=== PATIENT | male | born 1950 | race Caucasian/White ===

== ENCOUNTER → 2016-06-21 | Outpatient (CLI) | payer OTHER, BC ==
[~2016-06-21] MED LIST: ALEVE220 MG PO; ASPIRIN81 M1 PO; CATALYN PO; CIPROFLOXACIN500 MG PO; COQ 10 PO; CORDARONE200 MG PO; DIFLUCAN150 MG PO; DITROPAN XL5 MG PO; DULCOLAX STOOL100 MG PO; FLOMAX0.4 MG PO; GLUCOPHAGE500 M1 PO; HYPOTHALMEX PO; ICAPS TABLET1 EACH PO; IMDUR SA30 MG PO; IRON325 M2 PO; LIPITOR80 MG PO; LOPRESSOR25 MG PO; LOPRESSOR50 M1 PO; MAGNESIUM400 MG PO; MOTRIN800 MG PO; NAPROSYN500 MG PO; NATURE'S BLEND F1 MG PO; NORCO 5-325 TA1 EACH PO; OCUVITE1 TA1 PO; PERCOCET 325 MG1 TA2 PO; PERCOCET 325 MG1 TA6 PO; PLAVIX75 M1 PO; PROTONIX40 MG PO; TRACE MINERALS PO; TYLENOL PM 5001 CAP PO; URIBEL PO; VICODIN 500 MG-1 TAB PO; VITAMIN C500 M1 PO; ZOFRAN ODT4 MG SL; ZYPAN PO; [UNRECOGNIZED DRUG - OTHER] PO
== END | disposition home or self-care (01) ==
LOC: RAD 07:15
DX: M47.897 Other spondylosis, lumbosacral region (principal); M54.5 Low back pain

== ENCOUNTER → 2016-09-26 | Outpatient (CLI) | payer BC, MEDICARE ==
[2016-09-26 08:29] LABS: HEMATOCRIT 42.9 % (42.0-52.0); HEMOGLOBIN 14.5 g/dl (14.0-18.0); MEAN CELL VOLUME 88.6 fl (80.0-94.0); MEAN CORPUSCULAR HGB CONC 33.8 g/dl (33.0-37.0); RED BLOOD COUNT 4.84 10*6/uL (4.50-5.90); RED CELL DISTRI WIDTH 13.1 % (0-14.5); WHITE BLOOD COUNT 5.7 10*3/uL (4.8-10.8)
[2016-09-26 08:54] LABS: ALBUMIN 3.6 gm/dl (3.1-4.5); ALKALINE PHOSPHATASE 237 U/L (45-117); BILIRUBIN, TOTAL 0.5 mg/dl (0.2-1.0); BUN 18 mg/dl (7-24); CARBON DIOXIDE 30 mmol/L (21-32); CHLORIDE 106 mmol/L (98-107); CHOLESTEROL 92 mg/dL (<200); EST GLOM FILT AFRICAN AMERICAN > 60 ml/min; GLUCOSE 140 mg/dL (65-99); HDL CHOLESTEROL 57 mg/dl (40-60); LDL CHOLESTEROL 27 mg/dL (9-159); POTASSIUM 4.2 mmol/L (3.5-5.1); SGOT/AST 19 IU/L (3-35); SGPT/ALT 30 U/L (12-78); SODIUM 144 mmol/L (136-145); TRIGLYCERIDES 41 mg/dl (<150); VLDL CHOLESTEROL 8 mg/dL (6-40)
[2016-09-26 09:35] LABS: VITAMIN D, 25-HYDROXY 35.7 ng/mL (30-100)
== END | disposition home or self-care (01) ==
LOC: LAB 08:00
PROVIDERS: Family Medicine
DX: Z12.5 Encounter for screening for malignant neoplasm of prostate (principal); E55.9 Vitamin D deficiency, unspecified; E78.00 Pure hypercholesterolemia, unspecified; E74.00 Glycogen storage disease, unspecified; M19.90 Unspecified osteoarthritis, unspecified site; R53.83 Other fatigue

== ENCOUNTER → 2016-10-02 | Outpatient (CLI) | payer BC, MEDICARE | END | disposition home or self-care (01) | LOC: US 00:49 | DX: N20.0 Calculus of kidney (principal) ==

== ENCOUNTER → 2016-10-07 | Outpatient (CLI) | payer BC, MEDICARE | END | disposition home or self-care (01) | LOC: CT 09-29 14:00 | DX: N20.0 Calculus of kidney (principal); R31.9 Hematuria, unspecified; N23 Unspecified renal colic; R10.9 Unspecified abdominal pain; M12.88 Other specific arthropathies, not elsewhere classified, other specified site; K57.30 Diverticulosis of large intestine without perforation or abscess without bleeding ==

== ENCOUNTER → 2017-03-05 | Outpatient (CLI) | payer BC, MEDICARE ==
[2017-03-05 11:19] LABS: HEMATOCRIT 40.6 % (42.0-52.0); HEMOGLOBIN 13.8 g/dl (14.0-18.0); MEAN CELL VOLUME 89.8 fl (80.0-94.0); MEAN CORPUSCULAR HGB 30.5 pg (27.0-31.0); MEAN PLATELET VOLUME 9.8 fl (9.6-12.3); RED BLOOD COUNT 4.52 10*6/uL (4.50-5.90); RED CELL DISTRI WIDTH 12.8 % (0-14.5); WHITE BLOOD COUNT 4.7 10*3/uL (4.8-10.8)
[2017-03-05 11:45] LABS: ALBUMIN 3.7 gm/dl (3.1-4.5); ALKALINE PHOSPHATASE 169 U/L (45-117); BUN 23 mg/dl (7-24); CHLORIDE 106 mmol/L (98-107); CHOLESTEROL 99 mg/dL (<200); CPK 166 U/L (39-308); CREATININE 0.88 mg/dL (0.70-1.30); HDL CHOLESTEROL 65 mg/dl (40-60); LDL CHOLESTEROL 27 mg/dL (9-159); SGOT/AST 24 IU/L (3-35); SGPT/ALT 30 U/L (12-78); SODIUM 141 mmol/L (136-145); TOTAL PROTEIN 6.9 gm/dL (6.4-8.2); TRIGLYCERIDES 33 mg/dl (<150); VLDL CHOLESTEROL 7 mg/dL (6-40)
== END | disposition home or self-care (01) ==
LOC: LAB 10:57
PROVIDERS: Family Medicine
DX: E11.9 Type 2 diabetes mellitus without complications (principal); E55.9 Vitamin D deficiency, unspecified; E78.00 Pure hypercholesterolemia, unspecified

== ENCOUNTER → 2017-05-08 | Outpatient (CLI) | payer BC, MEDICARE ==
[2017-05-08 16:56] LABS: FREE T4 0.82 ng/dl (0.76-1.46)
[2017-05-08 17:02] LABS: THYROID STIM HORMONE (HS) 1.03 uIU/ml (0.358-4.75)
== END | disposition home or self-care (01) ==
LOC: LAB 16:11
PROVIDERS: Family Medicine
DX: R94.6 Abnormal results of thyroid function studies (principal)

== ENCOUNTER → 2017-05-11 | Outpatient (CLI) | payer BC, MEDICARE | END | disposition home or self-care (01) | LOC: CT 01:06 | DX: K57.30 Diverticulosis of large intestine without perforation or abscess without bleeding (principal); K76.0 Fatty (change of) liver, not elsewhere classified; K40.90 Unilateral inguinal hernia, without obstruction or gangrene, not specified as recurrent; K86.1 Other chronic pancreatitis; M51.36 Other intervertebral disc degeneration, lumbar region; M43.17 Spondylolisthesis, lumbosacral region; I70.0 Atherosclerosis of aorta; K51.80 Other ulcerative colitis without complications ==

== ENCOUNTER → 2017-05-23 | Outpatient (CLI) | payer BC, MEDICARE ==
[2017-05-23 10:23] LABS: LIPASE 171 U/L (73-393)
== END | disposition home or self-care (01) ==
LOC: LAB 09:30
PROVIDERS: Family Medicine
DX: K86.1 Other chronic pancreatitis (principal); K86.81 Exocrine pancreatic insufficiency

== ENCOUNTER → 2017-05-30 | Outpatient (CLI) | payer BC, MEDICARE | END | disposition home or self-care (01) | LOC: US 05-29 11:00 | DX: K76.0 Fatty (change of) liver, not elsewhere classified (principal) ==

== ENCOUNTER → 2017-09-05 | Day surgery (SDC) | payer BC, MEDICARE ==
[~2017-09-05] VITALS: Ht 175.2 cm; Wt 78.9 kg
--- NOTE | ~2017-09-05 | O ---
[place], [place] OPERATIVE NOTE NAME: RIAN LEWIS UNIT #: [id number] ROOM: DOCTOR: RODGER BATRES MD BIRTHDATE: [birth year] DOS: 09/05/2017 GASTROENDOSCOPIC REPORT HISTORY OF PRESENT ILLNESS: A 67-year-old, who has presented for colonoscopy and colonic screening. ALLERGIES: To no known medication. FAMILY HISTORY: Noncontributory. PAST SURGICAL HISTORY: Coronary artery disease, status post CABG x 3 vessels in 2016; left inguinal hernia repair, tonsillectomy, and lithotripsy. PAST MEDICAL HISTORY: Hyperlipidemia, diabetes mellitus, and hypertension. SOCIAL HISTORY: Nonsmoker and social alcohol consumer. PROCEDURE: Today's procedure part of investigation is colonoscopy plus piecemeal polypectomy, polyp in rectal pouch. PREMEDICATION: Versed and propofol. SCOPE: Olympus Spotster colonoscope 10L video. REPORT: After putting the patient in left lateral position and application of lubricant to the scope, the scope was introduced. Thereafter, under direct visualization, advanced through the length of colon without difficulty. Base of the cecum explored, appendiceal orifice identified, and ileocecal valve, photographed. There is retained stool and semi-liquid form throughout the length of the colon. Detailed visualization compromised. However, diverticulosis was identified in a scattered form and sessile polypoid lesion in rectal pouch with piecemeal polypectomy was removed. The patient extubated and tolerated the procedure well. IMPRESSION: Compromised visualization with presence of stool throughout the colon; however, diverticulosis and sessile polypoid lesion in rectal pouch, status post piecemeal polypectomy. PLAN: High fiber diet. ACTIVITY: Ad alen. FOLLOWUP: Routinely with you in office, p.r.n. visit with us in [facility]. I thank you very much indeed. [place], [place] OPERATIVE NOTE NAME: LEWISRIAN Emerald UNIT #: [id number] ROOM: DOCTOR: RODGER BATRES MD BIRTHDATE: [birth year] RODGER BATRES MD CM:OPRECORD:OPERATIVE NOTE [id number] IRINA BATRES MD 09/05/17 0826 interface
[2017-09-05 07:26] VITALS: BP 140/85
[2017-09-05 08:01] VITALS: BP 98/54
[2017-09-05 08:16] VITALS: BP 117/73
[2017-09-05 08:31] VITALS: BP 116/67
== END | disposition home or self-care (01) ==
LOC: SDC 07-20 11:00
DX: K57.30 Diverticulosis of large intestine without perforation or abscess without bleeding (principal); K62.1 Rectal polyp; I25.10 Atherosclerotic heart disease of native coronary artery without angina pectoris; Z95.1 Presence of aortocoronary bypass graft; Z98.890 Other specified postprocedural states; E78.5 Hyperlipidemia, unspecified; E11.9 Type 2 diabetes mellitus without complications; I10 Essential (primary) hypertension; K21.9 Gastro-esophageal reflux disease without esophagitis; Z87.442 Personal history of urinary calculi; E78.00 Pure hypercholesterolemia, unspecified; Z82.49 Family history of ischemic heart disease and other diseases of the circulatory system; Z83.3 Family history of diabetes mellitus

== ENCOUNTER → 2017-10-02 | Outpatient (CLI) | payer BC, MEDICARE ==
[2017-10-02 10:17] LABS: ALBUMIN 3.8 gm/dl (3.1-4.5); ALKALINE PHOSPHATASE 188 U/L (45-117); BUN 19 mg/dl (7-24); CHLORIDE 104 mmol/L (98-107); CHOLESTEROL 122 mg/dL (<200); CPK 146 U/L (39-308); CREATININE 0.82 mg/dL (0.70-1.30); HDL CHOLESTEROL 67 mg/dl (40-60); LDL CHOLESTEROL 46 mg/dL (9-159); POTASSIUM 3.8 mmol/L (3.5-5.1); SGOT/AST 18 IU/L (3-35); SGPT/ALT 30 U/L (12-78); SODIUM 139 mmol/L (136-145); TOTAL PROTEIN 7.2 gm/dL (6.4-8.2); TRIGLYCERIDES 43 mg/dl (<150); VLDL CHOLESTEROL 9 mg/dL (6-40)
== END | disposition home or self-care (01) ==
LOC: LAB 09:05
PROVIDERS: Family Medicine
DX: E78.00 Pure hypercholesterolemia, unspecified (principal); I10 Essential (primary) hypertension; E74.9 Disorder of carbohydrate metabolism, unspecified

== ENCOUNTER → 2018-01-03 | Outpatient (CLI) | payer BC, MEDICARE ==
[2018-01-03 08:05] LABS: ALBUMIN 3.9 gm/dl (3.1-4.5); ALKALINE PHOSPHATASE 214 U/L (45-117); BUN 18 mg/dl (7-24); CHLORIDE 106 mmol/L (98-107); CHOLESTEROL 112 mg/dL (<200); CREATININE 0.87 mg/dL (0.70-1.30); HDL CHOLESTEROL 60 mg/dl (40-60); LDL CHOLESTEROL 41 mg/dL (9-159); POTASSIUM 3.8 mmol/L (3.5-5.1); SGOT/AST 19 IU/L (3-35); SGPT/ALT 35 U/L (12-78); SODIUM 140 mmol/L (136-145); TRIGLYCERIDES 55 mg/dl (<150); VLDL CHOLESTEROL 11 mg/dL (6-40)
[2018-01-03 08:06] LABS: CPK 104 U/L (39-308)
== END | disposition home or self-care (01) ==
LOC: LAB 07:12
PROVIDERS: Family Medicine
DX: I10 Essential (primary) hypertension (principal); E11.9 Type 2 diabetes mellitus without complications; E78.00 Pure hypercholesterolemia, unspecified

== ENCOUNTER → 2018-04-26 | Outpatient (CLI) | payer BC, MEDICARE ==
[2018-04-26 08:56] LABS: HEMATOCRIT 40.6 % (42.0-52.0); HEMOGLOBIN 13.1 g/dl (14.0-18.0); MEAN CELL VOLUME 88.6 fl (80.0-94.0); MEAN CORPUSCULAR HGB 28.6 pg (27.0-31.0); MEAN CORPUSCULAR HGB CONC 32.3 g/dl (33.0-37.0); RED BLOOD COUNT 4.58 10*6/uL (4.50-5.90); RED CELL DISTRI WIDTH 13.1 % (0-14.5); WHITE BLOOD COUNT 6.3 10*3/uL (4.8-10.8)
[2018-04-26 09:11] LABS: ALBUMIN 3.7 gm/dl (3.1-4.5); ALKALINE PHOSPHATASE 149 U/L (45-117); BUN 19 mg/dl (7-24); CHLORIDE 106 mmol/L (98-107); CHOLESTEROL 125 mg/dL (<200); CPK 46 U/L (39-308); CREATININE 0.87 mg/dL (0.70-1.30); HDL CHOLESTEROL 55 mg/dl (40-60); LDL CHOLESTEROL 54 mg/dL (9-159); POTASSIUM 3.8 mmol/L (3.5-5.1); SGOT/AST 11 IU/L (3-35); SGPT/ALT 29 U/L (12-78); SODIUM 139 mmol/L (136-145); TOTAL PROTEIN 7.2 gm/dL (6.4-8.2); TRIGLYCERIDES 80 mg/dl (<150); VLDL CHOLESTEROL 16 mg/dL (6-40)
== END | disposition home or self-care (01) ==
LOC: LAB 08:05
PROVIDERS: Family Medicine
DX: E11.9 Type 2 diabetes mellitus without complications (principal); I10 Essential (primary) hypertension; E78.00 Pure hypercholesterolemia, unspecified; M19.90 Unspecified osteoarthritis, unspecified site

== ENCOUNTER → 2018-11-30 | Outpatient (CLI) | payer BC, MEDICARE ==
[2018-11-30 09:46] LABS: HEMOGLOBIN 14.2 g/dl (14.0-18.0); MEAN CELL VOLUME 91.3 fl (80.0-94.0); MEAN CORPUSCULAR HGB 30.1 pg (27.0-31.0); MEAN PLATELET VOLUME 10.4 fl (9.6-12.3); RED BLOOD COUNT 4.71 10*6/uL (4.50-5.90); RED CELL DISTRI WIDTH 12.4 % (0-14.5); WHITE BLOOD COUNT 5.4 10*3/uL (4.8-10.8)
[2018-11-30 10:06] LABS: ALBUMIN 3.9 gm/dl (3.1-4.5); ALKALINE PHOSPHATASE 138 U/L (45-117); BUN 22 mg/dl (7-24); CHLORIDE 108 mmol/L (98-107); CHOLESTEROL 138 mg/dL (<200); CPK 86 U/L (39-308); CREATININE 1.08 mg/dL (0.70-1.30); HDL CHOLESTEROL 60 mg/dl (40-60); LDL CHOLESTEROL 55 mg/dL (9-159); POTASSIUM 4.2 mmol/L (3.5-5.1); SGOT/AST 17 IU/L (3-35); SGPT/ALT 34 U/L (12-78); SODIUM 142 mmol/L (136-145); TRIGLYCERIDES 114 mg/dl (<150); VLDL CHOLESTEROL 23 mg/dL (6-40)
== END | disposition home or self-care (01) ==
LOC: LAB 08:59
PROVIDERS: Family Medicine
DX: E11.9 Type 2 diabetes mellitus without complications (principal); E55.9 Vitamin D deficiency, unspecified; E78.00 Pure hypercholesterolemia, unspecified

== ENCOUNTER → 2019-03-12 | Outpatient (CLI) | payer BC, MEDICARE ==
[2019-03-12 08:08] LABS: ALBUMIN 3.9 gm/dl (3.1-4.5); ALKALINE PHOSPHATASE 139 U/L (45-117); BUN 22 mg/dl (7-24); CHLORIDE 107 mmol/L (98-107); CHOLESTEROL 133 mg/dL (<200); CPK 132 U/L (39-308); CREATININE 0.91 mg/dL (0.70-1.30); HDL CHOLESTEROL 58 mg/dl (40-60); LDL CHOLESTEROL 59 mg/dL (9-159); POTASSIUM 3.7 mmol/L (3.5-5.1); SGOT/AST 15 IU/L (3-35); SGPT/ALT 34 U/L (12-78); SODIUM 139 mmol/L (136-145); TOTAL PROTEIN 7.1 gm/dL (6.4-8.2); TRIGLYCERIDES 78 mg/dl (<150); VLDL CHOLESTEROL 16 mg/dL (6-40)
== END | disposition home or self-care (01) ==
LOC: LAB 07:08
PROVIDERS: Family Medicine
DX: E11.9 Type 2 diabetes mellitus without complications (principal); E78.00 Pure hypercholesterolemia, unspecified; I10 Essential (primary) hypertension

== ENCOUNTER → 2019-04-16 | Outpatient (CLI) | payer BC, MEDICARE ==
[2019-04-16 07:55] LABS: ALBUMIN 3.7 gm/dl (3.1-4.5); ALKALINE PHOSPHATASE 158 U/L (45-117); BUN 17 mg/dl (7-24); CHLORIDE 107 mmol/L (98-107); CHOLESTEROL 184 mg/dL (<200); CPK 102 U/L (39-308); CREATININE 0.95 mg/dL (0.70-1.30); HDL CHOLESTEROL 51 mg/dl (40-60); LDL CHOLESTEROL 108 mg/dL (9-159); POTASSIUM 3.8 mmol/L (3.5-5.1); SGOT/AST 17 IU/L (3-35); SGPT/ALT 43 U/L (12-78); SODIUM 140 mmol/L (136-145); TOTAL PROTEIN 6.9 gm/dL (6.4-8.2); TRIGLYCERIDES 126 mg/dl (<150); VLDL CHOLESTEROL 25 mg/dL (6-40)
== END | disposition home or self-care (01) ==
LOC: LAB 06:45
PROVIDERS: Family Medicine
DX: E78.00 Pure hypercholesterolemia, unspecified (principal)

== ENCOUNTER → 2019-04-24 | Outpatient (CLI) | payer BC, MEDICARE ==
[2019-04-26 18:11] LABS: TESTOSTERONE FREE, (DIRECT) 4.9 pg/mL (6.6-18.1)
== END | disposition home or self-care (01) ==
LOC: LAB 08:42
PROVIDERS: Family Medicine
DX: I10 Essential (primary) hypertension (principal); R53.83 Other fatigue

== ENCOUNTER → 2019-07-17 | Outpatient (CLI) | payer BC, MEDICARE ==
[2019-07-17 08:19] LABS: HEMATOCRIT 45.7 % (42.0-52.0); HEMOGLOBIN 15.2 g/dl (14.0-18.0); MEAN CELL VOLUME 90.1 fl (80.0-94.0); MEAN CORPUSCULAR HGB CONC 33.3 g/dl (33.0-37.0); MEAN PLATELET VOLUME 10.6 fl (9.6-12.3); RED BLOOD COUNT 5.07 10*6/uL (4.50-5.90); RED CELL DISTRI WIDTH 12.3 % (0-14.5); WHITE BLOOD COUNT 5.2 10*3/uL (4.8-10.8)
[2019-07-17 08:49] LABS: ALBUMIN 4.2 gm/dl (3.1-4.5); ALKALINE PHOSPHATASE 149 U/L (45-117); BUN 22 mg/dl (7-24); CHLORIDE 106 mmol/L (98-107); CHOLESTEROL 198 mg/dL (<200); CREATININE 1.13 mg/dL (0.70-1.30); HDL CHOLESTEROL 56 mg/dl (40-60); LDL CHOLESTEROL 114 mg/dL (9-159); POTASSIUM 3.8 mmol/L (3.5-5.1); SGOT/AST 20 IU/L (3-35); SGPT/ALT 42 U/L (12-78); SODIUM 140 mmol/L (136-145); TOTAL PROTEIN 7.3 gm/dL (6.4-8.2); TRIGLYCERIDES 139 mg/dl (<150); VLDL CHOLESTEROL 28 mg/dL (6-40)
== END | disposition home or self-care (01) ==
LOC: LAB 07:19
PROVIDERS: Nurse Practitioner Family
DX: E78.00 Pure hypercholesterolemia, unspecified (principal); E11.9 Type 2 diabetes mellitus without complications; I10 Essential (primary) hypertension; E55.9 Vitamin D deficiency, unspecified

== ENCOUNTER → 2019-07-30 | Outpatient (CLI) | payer BC, MEDICARE | END | disposition home or self-care (01) | LOC: RAD 09:52 | DX: M16.0 Bilateral primary osteoarthritis of hip (principal) ==

== ENCOUNTER → 2019-10-15 | Outpatient (CLI) | payer BC, MEDICARE ==
[2019-10-15 08:54] LABS: HEMATOCRIT 44.7 % (42.0-52.0); MEAN CELL VOLUME 89.8 fl (80.0-94.0); MEAN CORPUSCULAR HGB 30.3 pg (27.0-31.0); MEAN CORPUSCULAR HGB CONC 33.8 g/dl (33.0-37.0); MEAN PLATELET VOLUME 10.5 fl (9.6-12.3); RED BLOOD COUNT 4.98 10*6/uL (4.50-5.90); RED CELL DISTRI WIDTH 12.2 % (0-14.5); WHITE BLOOD COUNT 5.4 10*3/uL (4.8-10.8)
[2019-10-15 09:14] LABS: ALBUMIN 3.9 gm/dl (3.1-4.5); BUN 22 mg/dl (7-24); CHLORIDE 107 mmol/L (98-107); CHOLESTEROL 192 mg/dL (<200); POTASSIUM 4.3 mmol/L (3.5-5.1); SGOT/AST 31 IU/L (3-35); SGPT/ALT 39 U/L (12-78); SODIUM 141 mmol/L (136-145); TOTAL PROTEIN 7.4 gm/dL (6.4-8.2); TRIGLYCERIDES 173 mg/dl (<150); VLDL CHOLESTEROL 35 mg/dL (6-40)
[2019-10-15 09:15] LABS: ALKALINE PHOSPHATASE 152 U/L (45-117); HDL CHOLESTEROL 51 mg/dl (40-60); LDL CHOLESTEROL 106 mg/dL (9-159)
== END | disposition home or self-care (01) ==
LOC: LAB 07:22
PROVIDERS: Nurse Practitioner Family
DX: E11.9 Type 2 diabetes mellitus without complications (principal); I10 Essential (primary) hypertension; E78.00 Pure hypercholesterolemia, unspecified

== ENCOUNTER → 2020-01-16 | Outpatient (CLI) | payer BC, MEDICARE ==
[2020-01-16 09:31] LABS: ALBUMIN 3.6 gm/dl (3.1-4.5); BUN 22 mg/dl (7-24); CHLORIDE 107 mmol/L (98-107); CHOLESTEROL 198 mg/dL (<200); CPK 70 U/L (39-308); CREATININE 0.98 mg/dL (0.70-1.30); HDL CHOLESTEROL 46 mg/dl (40-60); LDL CHOLESTEROL 118 mg/dL (9-159); POTASSIUM 4.1 mmol/L (3.5-5.1); SGOT/AST 18 IU/L (3-35); SGPT/ALT 50 U/L (12-78); SODIUM 138 mmol/L (136-145); TRIGLYCERIDES 168 mg/dl (<150); VLDL CHOLESTEROL 34 mg/dL (6-40)
[2020-01-16 09:34] LABS: ALKALINE PHOSPHATASE 144 U/L (45-117); TOTAL PROTEIN 7.2 gm/dL (6.4-8.2)
== END | disposition home or self-care (01) ==
LOC: LAB 08:20
PROVIDERS: Family Medicine
DX: E11.9 Type 2 diabetes mellitus without complications (principal); E55.9 Vitamin D deficiency, unspecified; I10 Essential (primary) hypertension

== ENCOUNTER → 2020-09-17 | Outpatient (CLI) | payer BC, MEDICARE ==
[~2020-09-17] MED LIST changes: +PERCOCET 5-3251 EACH PO
== END | disposition home or self-care (01) ==
LOC: CARD 00:01
PROVIDERS: ATTEND Internal Medicine Cardiovascular Disease
DX: Z01.818 Encounter for other preprocedural examination (principal); I25.110 Atherosclerotic heart disease of native coronary artery with unstable angina pectoris; R94.31 Abnormal electrocardiogram [ECG] [EKG]

== ENCOUNTER → 2020-12-21 | Outpatient (CLI) | payer BC, MEDICARE ==
[2020-12-21 11:37] LABS: HEMATOCRIT 41.8 % (42.0-52.0); MEAN CELL VOLUME 87.3 fl (80.0-94.0); MEAN CORPUSCULAR HGB 28.6 pg (27.0-31.0); MEAN CORPUSCULAR HGB CONC 32.8 g/dl (33.0-37.0); MEAN PLATELET VOLUME 10.1 fl (9.6-12.3); RED BLOOD COUNT 4.79 10*6/uL (4.50-5.90); RED CELL DISTRI WIDTH 12.9 % (0-14.5); WHITE BLOOD COUNT 6.3 10*3/uL (4.8-10.8)
[2020-12-21 12:03] LABS: ALBUMIN 3.8 gm/dl (3.1-4.5); ALKALINE PHOSPHATASE 205 U/L (45-117); BUN 18 mg/dl (7-24); CHLORIDE 108 mmol/L (98-107); CREATININE 0.88 mg/dL (0.70-1.30); POTASSIUM 3.8 mmol/L (3.5-5.1); SGOT/AST 15 IU/L (3-35); SGPT/ALT 28 U/L (12-78); SODIUM 139 mmol/L (136-145); TOTAL PROTEIN 7.3 gm/dL (6.4-8.2)
== END | disposition home or self-care (01) ==
LOC: LAB 11:01
PROVIDERS: ATTEND Family Medicine
DX: E55.9 Vitamin D deficiency, unspecified (principal); R53.83 Other fatigue; G47.00 Insomnia, unspecified

== ENCOUNTER → 2021-06-17 | Outpatient (CLI) | payer BC, MEDICARE ==
[2021-06-17 10:28] LABS: HEMATOCRIT 41.7 % (42.0-52.0); MEAN CELL VOLUME 87.8 fl (80.0-94.0); MEAN CORPUSCULAR HGB 28.8 pg (27.0-31.0); MEAN CORPUSCULAR HGB CONC 32.9 g/dl (33.0-37.0); MEAN PLATELET VOLUME 10.1 fl (9.6-12.3); RED BLOOD COUNT 4.75 10*6/uL (4.50-5.90); RED CELL DISTRI WIDTH 12.2 % (0-14.5); WHITE BLOOD COUNT 4.6 10*3/uL (4.8-10.8)
[2021-06-17 10:46] LABS: ALBUMIN 3.5 gm/dl (3.1-4.5); ALKALINE PHOSPHATASE 183 U/L (45-117); BUN 18 mg/dl (7-24); CHLORIDE 106 mmol/L (98-107); CHOLESTEROL 184 mg/dL (<200); CREATININE 0.84 mg/dL (0.70-1.30); LDL CHOLESTEROL 107 mg/dL (9-159); POTASSIUM 3.8 mmol/L (3.5-5.1); SGOT/AST 16 IU/L (3-35); SGPT/ALT 29 U/L (12-78); SODIUM 139 mmol/L (136-145); TOTAL PROTEIN 7.3 gm/dL (6.4-8.2); TRIGLYCERIDES 127 mg/dl (<150)
== END | disposition home or self-care (01) ==
LOC: LAB 10:07
PROVIDERS: ATTEND Family Medicine
DX: E11.9 Type 2 diabetes mellitus without complications (principal); Z12.5 Encounter for screening for malignant neoplasm of prostate; E55.9 Vitamin D deficiency, unspecified

== ENCOUNTER → 2021-09-09 | Outpatient (CLI) | payer BC, MEDICARE ==
[2021-09-09 07:40] LABS: HEMATOCRIT 43.5 % (42.0-52.0); MEAN CELL VOLUME 85.6 fl (80.0-94.0); MEAN CORPUSCULAR HGB 28.3 pg (27.0-31.0); MEAN CORPUSCULAR HGB CONC 33.1 g/dl (33.0-37.0); MEAN PLATELET VOLUME 10.1 fl (9.6-12.3); RED BLOOD COUNT 5.08 10*6/uL (4.50-5.90); WHITE BLOOD COUNT 5.3 10*3/uL (4.8-10.8)
[2021-09-09 07:55] LABS: ALKALINE PHOSPHATASE 191 U/L (45-117); BUN 16 mg/dl (7-24); CHLORIDE 106 mmol/L (98-107); CHOLESTEROL 179 mg/dL (<200); CPK 62 U/L (39-308); CREATININE 0.98 mg/dL (0.70-1.30); LDL CHOLESTEROL 104 mg/dL (9-159); SGOT/AST 11 IU/L (3-35); SGPT/ALT 26 U/L (12-78); SODIUM 139 mmol/L (136-145); TOTAL PROTEIN 7.3 gm/dL (6.4-8.2); TRIGLYCERIDES 120 mg/dl (<150)
[2021-09-09 08:32] LABS: VITAMIN D, 25-HYDROXY 48.2 ng/mL (30-100)
== END | disposition home or self-care (01) ==
LOC: LAB 07:15
PROVIDERS: ATTEND Family Medicine
DX: I10 Essential (primary) hypertension (principal); E55.9 Vitamin D deficiency, unspecified; E11.9 Type 2 diabetes mellitus without complications; R53.83 Other fatigue

== ENCOUNTER → 2021-12-13 | Outpatient (CLI) | payer BC, MEDICARE ==
[2021-12-13 09:43] LABS: MEAN CELL VOLUME 87.8 fl (80.0-94.0); MEAN CORPUSCULAR HGB 29.6 pg (27.0-31.0); MEAN CORPUSCULAR HGB CONC 33.7 g/dl (33.0-37.0); MEAN PLATELET VOLUME 9.8 fl (9.6-12.3); RED BLOOD COUNT 4.9 10*6/uL (4.50-5.90); RED CELL DISTRI WIDTH 12.8 % (0-14.5); WHITE BLOOD COUNT 5.3 10*3/uL (4.8-10.8)
[2021-12-13 10:00] LABS: CHLORIDE 111 mmol/L (98-107); POTASSIUM 4.5 mmol/L (3.5-5.1); SODIUM 140 mmol/L (136-145)
[2021-12-13 10:06] LABS: ALKALINE PHOSPHATASE 150 U/L (45-117); BUN 26 mg/dl (7-24); CHOLESTEROL 136 mg/dL (<200); CREATININE 0.89 mg/dL (0.70-1.30); LDL CHOLESTEROL 69 mg/dL (9-159); SGOT/AST 23 IU/L (3-35); SGPT/ALT 28 U/L (12-78); TRIGLYCERIDES 71 mg/dl (<150)
== END ==
LOC: LAB 09:25
PROVIDERS: ATTEND Family Medicine
DX: E11.9 Type 2 diabetes mellitus without complications (principal); E78.00 Pure hypercholesterolemia, unspecified; I10 Essential (primary) hypertension

== ENCOUNTER → 2022-03-29 | Outpatient (CLI) | payer BC, MEDICARE ==
[2022-03-29 07:20] LABS: HEMATOCRIT 44.6 % (42.0-52.0); MEAN CELL VOLUME 87.6 fl (80.0-94.0); MEAN CORPUSCULAR HGB 30.1 pg (27.0-31.0); MEAN CORPUSCULAR HGB CONC 34.3 g/dl (33.0-37.0); MEAN PLATELET VOLUME 9.8 fl (9.6-12.3); RED BLOOD COUNT 5.09 10*6/uL (4.50-5.90); RED CELL DISTRI WIDTH 12.5 % (0-14.5); WHITE BLOOD COUNT 5.3 10*3/uL (4.8-10.8)
[2022-03-29 07:38] LABS: ALKALINE PHOSPHATASE 154 U/L (45-117); BUN 24 mg/dl (7-24); CHLORIDE 108 mmol/L (98-107); CHOLESTEROL 146 mg/dL (<200); CPK 105 U/L (39-308); CREATININE 1.05 mg/dL (0.70-1.30); LDL CHOLESTEROL 78 mg/dL (9-159); POTASSIUM 4.1 mmol/L (3.5-5.1); SGOT/AST 15 IU/L (3-35); SGPT/ALT 31 U/L (12-78); SODIUM 140 mmol/L (136-145); TOTAL PROTEIN 7.3 gm/dL (6.4-8.2); TRIGLYCERIDES 92 mg/dl (<150)
== END | disposition home or self-care (01) ==
LOC: LAB 07:03
PROVIDERS: ATTEND Family Medicine
DX: E11.9 Type 2 diabetes mellitus without complications (principal); E78.00 Pure hypercholesterolemia, unspecified; I10 Essential (primary) hypertension

== ENCOUNTER → 2022-09-30 | Outpatient (CLI) | payer BC, MEDICARE ==
[2022-09-30 09:58] LABS: HEMATOCRIT 45.1 % (42.0-52.0); MEAN CELL VOLUME 86.7 fl (80.0-94.0); MEAN CORPUSCULAR HGB 28.8 pg (27.0-31.0); MEAN CORPUSCULAR HGB CONC 33.3 g/dl (33.0-37.0); MEAN PLATELET VOLUME 10.3 fl (9.6-12.3); RED BLOOD COUNT 5.2 10*6/uL (4.50-5.90); RED CELL DISTRI WIDTH 13.1 % (0-14.5); WHITE BLOOD COUNT 4.7 10*3/uL (4.8-10.8)
[2022-09-30 10:34] LABS: ALKALINE PHOSPHATASE 154 U/L (46-116); BUN 18 mg/dl (9-23); CHLORIDE 106 mmol/L (98-107); CHOLESTEROL 169 mg/dL (<200); LDL CHOLESTEROL 102 mg/dL (9-159); POTASSIUM 3.6 mmol/L (3.4-5.1); SGPT/ALT 25 U/L (10-49); TOTAL PROTEIN 7.1 gm/dL (6.0-8.0); TRIGLYCERIDES 108 mg/dl (<150)
[2022-09-30 11:09] LABS: VITAMIN D, 25-HYDROXY 76.3 ng/mL (30-100)
== END | disposition home or self-care (01) ==
LOC: LAB 01:42
PROVIDERS: ATTEND Family Medicine
DX: Z00.00 Encounter for general adult medical examination without abnormal findings (principal); E11.9 Type 2 diabetes mellitus without complications; E55.9 Vitamin D deficiency, unspecified; E78.00 Pure hypercholesterolemia, unspecified; Z79.899 Other long term (current) drug therapy

== ENCOUNTER → 2023-02-14 | Outpatient (CLI) | payer OTHER, MEDICARE | END | disposition home or self-care (01) | LOC: MRI 00:41 | PROVIDERS: ATTEND Podiatrist | DX: S93.401A Sprain of unspecified ligament of right ankle, initial encounter (principal); M25.471 Effusion, right ankle; M19.071 Primary osteoarthritis, right ankle and foot; R60.0 Localized edema; M72.2 Plantar fascial fibromatosis; X58.XXXA Exposure to other specified factors, initial encounter; Y93.89 Activity, other specified; Y92.89 Other specified places as the place of occurrence of the external cause; Y99.8 Other external cause status ==

== ENCOUNTER → 2023-03-13 | Outpatient (CLI) | payer OTHER, MEDICARE ==
[2023-03-13 10:54] LABS: HEMATOCRIT 42.8 % (42.0-52.0); MEAN CELL VOLUME 89.2 fl (80.0-94.0); MEAN CORPUSCULAR HGB CONC 33.6 g/dl (33.0-37.0); MEAN PLATELET VOLUME 9.7 fl (9.6-12.3); RED BLOOD COUNT 4.8 10*6/uL (4.50-5.90); RED CELL DISTRI WIDTH 13.1 % (0-14.5); WHITE BLOOD COUNT 5.1 10*3/uL (4.8-10.8)
[2023-03-13 11:25] LABS: ALKALINE PHOSPHATASE 162 U/L (46-116); BUN 18 mg/dl (9-23); CHLORIDE 107 mmol/L (98-107); CHOLESTEROL 174 mg/dL (<200); CPK 99 U/L (34-171); LDL CHOLESTEROL 101 mg/dL (9-159); POTASSIUM 3.9 mmol/L (3.4-5.1); SGPT/ALT 29 U/L (10-49); TOTAL PROTEIN 6.9 gm/dL (6.0-8.0); TRIGLYCERIDES 103 mg/dl (<150)
== END | disposition home or self-care (01) ==
LOC: LAB 10:27
PROVIDERS: ATTEND Family Medicine
DX: E11.9 Type 2 diabetes mellitus without complications (principal); E78.00 Pure hypercholesterolemia, unspecified; E78.5 Hyperlipidemia, unspecified

== ENCOUNTER → 2023-06-07 | Outpatient (CLI) | payer BC, MEDICARE ==
[2023-06-07 09:37] LABS: HEMATOCRIT 44.1 % (42.0-52.0); MEAN CELL VOLUME 88.9 fl (80.0-94.0); MEAN CORPUSCULAR HGB 29.6 pg (27.0-31.0); MEAN CORPUSCULAR HGB CONC 33.3 g/dl (33.0-37.0); MEAN PLATELET VOLUME 9.9 fl (9.6-12.3); RED BLOOD COUNT 4.96 10*6/uL (4.50-5.90); RED CELL DISTRI WIDTH 12.6 % (0-14.5); WHITE BLOOD COUNT 4.5 10*3/uL (4.8-10.8)
[2023-06-07 10:03] LABS: ALKALINE PHOSPHATASE 173 U/L (46-116); BUN 15 mg/dl (9-23); CHLORIDE 106 mmol/L (98-107); CHOLESTEROL 181 mg/dL (<200); CPK 70 U/L (34-171); LDL CHOLESTEROL 108 mg/dL (9-159); SGPT/ALT 34 U/L (5-49); TOTAL PROTEIN 7.2 gm/dL (6.0-8.0); TRIGLYCERIDES 124 mg/dl (<150)
== END | disposition home or self-care (01) ==
LOC: LAB 09:18
PROVIDERS: ATTEND Family Medicine
DX: E78.00 Pure hypercholesterolemia, unspecified (principal); E11.9 Type 2 diabetes mellitus without complications; I10 Essential (primary) hypertension

== ENCOUNTER → 2024-06-05 | Outpatient (CLI) | payer BC, MEDICARE ==
[2024-06-05 09:41] LABS: HEMATOCRIT 44.1 % (42.0-52.0); MEAN CELL VOLUME 89.1 fl (80.0-94.0); MEAN CORPUSCULAR HGB 28.5 pg (27.0-31.0); MEAN PLATELET VOLUME 9.7 fl (9.6-12.3); RED BLOOD COUNT 4.95 10*6/uL (4.50-5.90); RED CELL DISTRI WIDTH 12.9 % (0-14.5); WHITE BLOOD COUNT 4.9 10*3/uL (4.8-10.8)
[2024-06-05 10:05] LABS: ALKALINE PHOSPHATASE 221 U/L (46-116); BUN 21 mg/dl (9-23); CHLORIDE 103 mmol/L (98-107); CHOLESTEROL 191 mg/dL (<200); CPK 68 U/L (34-171); LDL CHOLESTEROL 107 mg/dL (9-159); POTASSIUM 4.4 mmol/L (3.4-5.1); SGPT/ALT 26 U/L (5-49); TOTAL PROTEIN 7.5 gm/dL (6.0-8.0); TRIGLYCERIDES 132 mg/dl (<150)
[2024-06-05 10:06] LABS: VITAMIN D, 25-HYDROXY 81.9 ng/mL (30-100)
== END | disposition home or self-care (01) ==
LOC: LAB 09:19
PROVIDERS: ATTEND Family Medicine
DX: E11.9 Type 2 diabetes mellitus without complications (principal); I10 Essential (primary) hypertension; E78.00 Pure hypercholesterolemia, unspecified; R53.83 Other fatigue; E55.9 Vitamin D deficiency, unspecified; M54.50 Low back pain, unspecified

== ENCOUNTER → 2024-06-30 | Outpatient (CLI) | payer BC, MEDICARE | END | disposition home or self-care (01) | LOC: CT 01:55 | PROVIDERS: ATTEND Family Medicine | DX: N20.0 Calculus of kidney (principal); K76.0 Fatty (change of) liver, not elsewhere classified; K57.30 Diverticulosis of large intestine without perforation or abscess without bleeding; J43.8 Other emphysema; K86.1 Other chronic pancreatitis; I25.10 Atherosclerotic heart disease of native coronary artery without angina pectoris ==

== ENCOUNTER → 2024-07-02 | Outpatient (CLI) | payer BC, MEDICARE | END | disposition home or self-care (01) | LOC: RAD 08:57 | PROVIDERS: ATTEND Family Medicine | DX: M43.25 Fusion of spine, thoracolumbar region (principal); M51.86 Other intervertebral disc disorders, lumbar region ==

== ENCOUNTER → 2024-09-23 | Outpatient (CLI) | payer BC, MEDICARE ==
[2024-09-23 07:38] LABS: HEMATOCRIT 42.3 % (42.0-52.0); MEAN CELL VOLUME 88.5 fl (80.0-94.0); MEAN CORPUSCULAR HGB 29.1 pg (27.0-31.0); MEAN CORPUSCULAR HGB CONC 32.9 g/dl (33.0-37.0); MEAN PLATELET VOLUME 9.3 fl (9.6-12.3); RED BLOOD COUNT 4.78 10*6/uL (4.50-5.90); WHITE BLOOD COUNT 4.8 10*3/uL (4.8-10.8)
[2024-09-23 08:18] LABS: ALKALINE PHOSPHATASE 164 U/L (46-116); BUN 25 mg/dl (9-23); CHLORIDE 104 mmol/L (98-107); CHOLESTEROL 206 mg/dL (<200); CPK 98 U/L (34-171); LDL CHOLESTEROL 126 mg/dL (9-159); POTASSIUM 4.1 mmol/L (3.4-5.1); SGPT/ALT 23 U/L (5-49); TOTAL PROTEIN 7.4 gm/dL (6.0-8.0); TRIGLYCERIDES 120 mg/dl (<150)
== END | disposition home or self-care (01) ==
LOC: LAB 07:18
PROVIDERS: ATTEND Family Medicine
DX: Z12.5 Encounter for screening for malignant neoplasm of prostate (principal); E78.00 Pure hypercholesterolemia, unspecified; I10 Essential (primary) hypertension; E11.9 Type 2 diabetes mellitus without complications

== ENCOUNTER → 2024-12-09 | Outpatient (CLI) | payer BC, MEDICARE | END | disposition home or self-care (01) | LOC: LAB 09:31 | PROVIDERS: ATTEND Family Medicine | DX: I10 Essential (primary) hypertension (principal); E83.52 Hypercalcemia ==

== ENCOUNTER → 2025-02-04 | Outpatient (CLI) | payer BC, MEDICARE | LOC: MRI 02:01 | PROVIDERS: ATTEND Podiatrist | DX: S93.419D Sprain of calcaneofibular ligament of unspecified ankle, subsequent encounter (principal); M72.2 Plantar fascial fibromatosis; M19.071 Primary osteoarthritis, right ankle and foot; M79.89 Other specified soft tissue disorders; X58.XXXD Exposure to other specified factors, subsequent encounter ==

== ENCOUNTER 2025-04-28 18:31 | Emergency (ER) | payer BC, MEDICARE ==
[~2025-04-28] VITALS: Ht 175.2 cm; Wt 86.2 kg
[2025-04-28] MEDS ORDERED: REPATHA SY140 MG/1 M SQ (19:04)
[2025-04-28] MEDS ORDERED: METHOCARBAMOL 750 MG TAB PO ONE (19:35)
[2025-04-28] MEDS ORDERED: METHOCARBAMOL750 M1 PO (20:01)
[2025-04-28] MEDS ORDERED: PREDNISONE20 M1 PO (20:02)
== END 2025-04-28 20:08 | disposition home or self-care (01) ==
LOC: ED 18:31
DX: S39.012A Strain of muscle, fascia and tendon of lower back, initial encounter (principal); I10 Essential (primary) hypertension; E11.9 Type 2 diabetes mellitus without complications; I25.10 Atherosclerotic heart disease of native coronary artery without angina pectoris; K21.9 Gastro-esophageal reflux disease without esophagitis; G47.30 Sleep apnea, unspecified; E78.00 Pure hypercholesterolemia, unspecified; Z87.442 Personal history of urinary calculi; Z88.8 Allergy status to other drugs, medicaments and biological substances; Z98.890 Other specified postprocedural states; Z90.89 Acquired absence of other organs; X58.XXXA Exposure to other specified factors, initial encounter; Y93.89 Activity, other specified; Y92.89 Other specified places as the place of occurrence of the external cause; Y99.8 Other external cause status